=== PATIENT | male | born 1970 | race Caucasian/White ===

== ENCOUNTER 2018-07-25 01:55 | Inpatient (IN) ==
[2018-07-25] MEDS ORDERED: Sod Chloride 0.9% Inj 1,000 ML IV.CONT SCH (02:45)
--- NOTE | 2018-07-25 02:47 | ED ---
HPI General Chief Complaint: Abdominal Pain Stated Complaint: Time Seen by Provider: 07/25/18 02:13 Source: patient Mode of arrival: ambulatory Limitations: no limitations History of Present Illness HPI narrative: The patient is a 48-year-old male who presents to the emergency department for right upper quadrant abdominal pain and yellowing of the skin. The patient states he was at the [facility] until yesterday evening for similar symptoms, however, the patient signed out AGAINST MEDICAL ADVICE after he was involved in an argument with a nurse. The patient denies any history of alcohol use, hepatitis, IV drug use, or previous history of jaundice. The patient does state he recently had constipation, had an episode of nausea and vomiting, thought he was vomiting stool. The patient states he had multiple studies performed at [facility], however, does not know the results. The patient states he was told it was his liver as well as his gallbladder. The patient denies any fever, chills, or sweats. MD complaint: abdominal pain Onset (ago): day(s) Pain Consistency: constant Location: RUQ Severity: moderate Severity scale (1-10): 6 Quality: stabbing Radiation: R flank Migration to: R flank Relieving factors: nothing Exacerbating factors: nothing Associated symptoms: nausea, vomiting and constipation Related Data Home Medications Medication Instructions Recorded Confirmed No Known Home Medications 07/25/18 07/25/18 Allergies Allergy/AdvReac Type Severity Reaction Status Date / Time acetaminophen Allergy Unknown Nausea/Vomi Verified 07/25/18 01:57 ting aspirin Allergy Unknown Nausea/Vomi Verified 07/25/18 01:57 ting propoxyphene Allergy Unknown Nausea/Vomi Verified 07/25/18 01:57 ting Review of Systems ROS: all other systems reviewed are negative [facility] Medical History Medical History Hypoglycemia (Acute) Kidney stones (Acute) Surgical History Surgical History History of hernia surgery (Acute) Social History Social History Substance History: No History of Abuse Second Hand Smoke Exposure: Yes Smoking Status: Current every day smoker Tobacco Type: Cigarettes How Often Do You Have a Drink Containing Alcohol: 4 or more times a week Recent Travel in [facility] within the Last 8 Weeks: No Recent Out of Country Travel within the Last 8 Weeks: No Immunization History Tetanus Immunization: <5 Years Hx Influenza Vaccine This Season: Yes Exam Narrative Exam Narrative: GENERAL: Awake, alert, pleasant 48-year-old male who appears his stated age and is in no respiratory distress. SKIN: Jaundice. HEAD: Atraumatic. Normocephalic. EYES: Pupils equal and round. Pupils are 2 mm bilateral and reactive. Bilateral icterus. ENT: No nasal bleeding or discharge. Mucous membranes pink and moist. Upper dentures in place. NECK: Trachea midline. No JVD. CARDIOVASCULAR: Regular rate and rhythm. No murmur appreciated. RESPIRATORY: No accessory muscle use. Clear to auscultation. Breath sounds equal bilaterally. GASTROINTESTINAL: Abdomen soft, right upper quadrant abdominal tenderness. No guarding or rigidity. MUSCULOSKELETAL: No obvious deformities. No clubbing. No cyanosis. No edema. NEUROLOGICAL: Awake and alert. No obvious cranial nerve deficits. Motor grossly within normal limits. Normal speech. PSYCHIATRIC: Odd affect. Course Initial Documented Vital Signs Temperature 98.0 F 07/25/18 01:58 Pulse Rate 105 H 07/25/18 01:58 Respiratory Rate 20 07/25/18 01:58 Blood Pressure 94/55 L 07/25/18 01:58 Pulse Oximetry 98 07/25/18 01:58 Last Documented Vital Signs Temperature 98.0 F 07/25/18 01:58 Pulse Rate 87 07/25/18 02:06 Respiratory Rate 20 07/25/18 02:06 Blood Pressure 100/55 L 07/25/18 02:06 Pulse Oximetry 98 07/25/18 02:06 Medical Decision Making MDM Narrative Medical decision making narrative: IV was established, labs are drawn and sent, and the patient was placed on cardiac telemetry monitoring and continuous pulse oximetry monitoring. An attempt was made to obtain the patient's records from [facility]. CT of the abdomen and pelvis was performed to evaluate for possible cholelithiasis/cholangitis/choledocholithiasis. Patient' s bilirubin is significantly elevated as well as LFTs. CT reveals hepatocellular disease, no obvious source of obstructive jaundice. I reviewed the paperwork from [facility], the patient tested positive for hepatitis B, unsure if this is acute versus chronic. Most likely this is acute hepatitis B infection, patient may benefit from antiviral therapy and gastroenterology evaluation. Therefore, the patient will be admitted. I discussed the patient with Dr. Francisco who agrees with admission. Medical Screen Exam Complete: Yes Emergency Medical Condition: Yes Differential Diagnosis Differential Diagnosis: Differential diagnosis includes choledocholithiasis, cholelithiasis, hepatitis, pancreatitis, cholangitis, obstructive jaundice. Lab Data Lab results reviewed: Yes I reviewed the patient's lab results. Lab results narrative: LFTs and bilirubin are elevated. Result diagrams: 07/25/18 02:50 07/25/18 02:50 Lab Results 07/25/18 07/25/18 07/25/18 Range/Units 02:50 02:50 02:50 WBC 7.5 (4.0-11.0) th/mm3 RBC 4.34 L (4.50-5.90) mil/mm3 Hgb 12.8 L (13.0-17.0) gm/dL Hct 37.8 L (39.0-51.0) % MCV 87.2 (80.0-100.0) fL MCH 29.5 (27.0-34.0) pg MCHC 33.8 (32.0-36.0) % RDW 16.4 (11.6-17.2) % Plt Count 237 (150-450) th/mm3 MPV 9.8 (7.0-11.0) fL Neut % (Auto) 72.2 H (16.0-70.0) % Lymph % (Auto) 15.6 (9.0-44.0) % Starke % (Auto) 10.3 H (0.0-8.0) % Eos % (Auto) 1.3 (0.0-4.0) % Baso % (Auto) 0.6 (0.0-2.0) % Neut # (Auto) 5.4 (1.8-7.7) th/mm3 Lymph # (Auto) 1.2 (1.0-4.8) th/mm3 Starke # (Auto) 0.8 (0.0-0.9) th/mm3 Eos # (Auto) 0.1 (0.0-0.4) th/mm3 Baso # (Auto) 0.0 (0.0-0.2) th/mm3 WBC Differential . Differential Comment Auto diff final PT 12.8 H (9.8-11.6) sec INR 1.3 Ratio APTT 27.5 (24.3-30.1) sec Sodium 137 (136-145) meq/L Potassium 3.9 (3.5-5.1) meq/L Chloride 102 (98-107) meq/L Carbon Dioxide 25.0 (21.0-32.0) meq/L Anion Gap 10 (5-15) meq/L BUN 9 (7-18) mg/dL Creatinine 1.25 (0.60-1.30) mg/dL Estimated GFR 62 L (>89) mL/min Random Glucose 221 H (74-106) mg/dL Lactic Acid (0.4-2.0) mmol/L Calcium 7.5 L (8.5-10.1) mg/dL Total Bilirubin 14.8 H (0.2-1.0) mg/dL AST 817 H (15-37) U/L ALT 1014 H (12-78) U/L Alkaline Phosphatase 244 H (45-117) U/L Total Protein 5.6 L (6.4-8.2) g/dL Albumin 2.2 L (3.4-5.0) g/dL Lipase 75 (73-393) U/L 07/25/18 Range/Units 02:50 WBC (4.0-11.0) th/mm3 RBC (4.50-5.90) mil/mm3 Hgb (13.0-17.0) gm/dL Hct (39.0-51.0) % MCV (80.0-100.0) fL MCH (27.0-34.0) pg MCHC (32.0-36.0) % RDW (11.6-17.2) % Plt Count (150-450) th/mm3 MPV (7.0-11.0) fL Neut % (Auto) (16.0-70.0) % Lymph % (Auto) (9.0-44.0) % Starke % (Auto) (0.0-8.0) % Eos % (Auto) (0.0-4.0) % Baso % (Auto) (0.0-2.0) % Neut # (Auto) (1.8-7.7) th/mm3 Lymph # (Auto) (1.0-4.8) th/mm3 Starke # (Auto) (0.0-0.9) th/mm3 Eos # (Auto) (0.0-0.4) th/mm3 Baso # (Auto) (0.0-0.2) th/mm3 WBC Differential Differential Comment PT (9.8-11.6) sec INR Ratio APTT (24.3-30.1) sec Sodium (136-145) meq/L Potassium (3.5-5.1) meq/L Chloride (98-107) meq/L Carbon Dioxide (21.0-32.0) meq/L Anion Gap (5-15) meq/L BUN (7-18) mg/dL Creatinine (0.60-1.30) mg/dL Estimated GFR (>89) mL/min Random Glucose (74-106) mg/dL Lactic Acid 1.8 (0.4-2.0) mmol/L Calcium (8.5-10.1) mg/dL Total Bilirubin (0.2-1.0) mg/dL AST (15-37) U/L ALT (12-78) U/L Alkaline Phosphatase (45-117) U/L Total Protein (6.4-8.2) g/dL Albumin (3.4-5.0) g/dL Lipase (73-393) U/L Imaging Data Radiologist's impression: Abdomen/Pelvis CT 07/25/18 02:43 CONCLUSION: 1. Hepatosplenomegaly. 2. Small mildly enlarged lymph nodes within the jack hepatis without bulky adenopathy elsewhere. The exact etiology is uncertain. I cannot completely exclude a myeloproliferative disorder. 3. Poor evaluation of the gallbladder which is largely decompressed. There is suspected linear high attenuation material within the lumen which could relate to infolding of the gallbladder wall or could relate to sludge. At some point an outpatient follow-up ultrasound of the gallbladder is suggested to further assess. 4. Small volume ascites. Discharge Plan Discharge Disposition Patient Disposition: 30 Still Patient Discharge Condition Condition: Stable Discharge Details Diagnosis: Hepatitis, Hyperbilirubinemia, Nausea & vomiting Physicians Team ED Provider: Angel Shah Primary Care Provider: Primary Care Isabella Juárez Rxs /Orders / Referrals /Forms Prescriptions: No Action No Known Home Medications RF: 0 Status ED Status: Admitted Patient
[2018-07-25 03:08] LABS: Activated Partial Thrombo Time 27.5 sec (24.3-30.1); INR 1.3 Ratio; Prothrombin Time 12.8 sec (9.8-11.6)
[2018-07-25 03:15] LABS: Albumin 2.2 g/dL (3.4-5.0); Anion Gap 10 meq/L (5-15); Aspartate Aminotransferase 817 U/L (15-37); Baso % (Auto) 0.6 % (0.0-2.0); Blood Urea Nitrogen 9 mg/dL (7-18); Calcium 7.5 mg/dL (8.5-10.1); Chloride 102 meq/L (98-107); Eos # (Auto) 0.1 th/mm3 (0.0-0.4); Eos % (Auto) 1.3 % (0.0-4.0); Glomerular Filtration Rate 62 mL/min (>89); Glucose,Random 221 mg/dL (74-106); Hematocrit 37.8 % (39.0-51.0); Hemoglobin 12.8 gm/dL (13.0-17.0); Lipase 75 U/L (73-393); Lymph # (Auto) 1.2 th/mm3 (1.0-4.8); Lymph % (Auto) 15.6 % (9.0-44.0); Mean Corpuscular HGB Conc 33.8 % (32.0-36.0); Mean Corpuscular Hemoglobin 29.5 pg (27.0-34.0); Mean Corpuscular Volume 87.2 fL (80.0-100.0); Mean Platelet Volume 9.8 fL (7.0-11.0); Mono # (Auto) 0.8 th/mm3 (0.0-0.9); Mono % (Auto) 10.3 % (0.0-8.0); Neut # (Auto) 5.4 th/mm3 (1.8-7.7); Neut % (Auto) 72.2 % (16.0-70.0); Platelet Count 237 th/mm3 (150-450); Potassium 3.9 meq/L (3.5-5.1); Red Blood Count 4.34 mil/mm3 (4.50-5.90); Red Cell Distribution Width 16.4 % (11.6-17.2); Sodium 137 meq/L (136-145); White Blood Count 7.5 th/mm3 (4.0-11.0)
[2018-07-25 03:24] LABS: Alanine Aminotransferase 1014 U/L (12-78); Alkaline Phosphatase 244 U/L (45-117); Total Protein 5.6 g/dL (6.4-8.2)
[2018-07-25] MEDS ORDERED: Ketorolac Inj 30 MG/ML (IVP) Vial IV.PUSH ONE (03:50)
--- NOTE | 2018-07-25 04:12 | CT ---
EXAM DATE: 07/25/2018 3:44 AM EDT AGE/SEX: 48 years / Male INDICATIONS: Right upper quadrant with jaundice. CLINICAL DATA: This is the patient's initial encounter. Patient reports that signs and symptoms have been present for 1 day and indicates a pain score of 9/10. MEDICAL/SURGICAL HISTORY: Renal calculi. None. ORAL CONTRAST: No oral contrast ingested. RADIATION DOSE: 13.57 CTDI (mGy) COMPARISON: No prior exams available for comparison. TECHNIQUE: Multiple contiguous axial images were obtained through the abdomen and pelvis following b olus infusion of 90 ml Omnipaque 350 (iohexol) nonionic water-soluble contrast as a single exam dos e. No oral contrast ingested. Using automated exposure control and adjustment of the mA and/or kV ac cording to patient size, radiation dose was kept as low as reasonably achievable to obtain optimal di agnostic quality images. DICOM format image data is available electronically for review and comparis on. FINDINGS: Lower Lungs: The visualized lower lungs are clear. Liver: Hepatomegaly. No mass or ductal dilatation. Portal veins patent. The gallbladder is decompress ed and poorly evaluated. There is linear high attenuation suspected within the lumen. No gallbladder wall thickening or surrounding fluid. Small jack hepatis lymph nodes are noted. The largest measures 2.6 x 0.8 cm.. Spleen: Splenomegaly. No mass.. Pancreas: Unremarkable without mass or calcification. Kidneys: Normal in size and shape. No evidence of mass or hydronephrosis. Adrenal Glands: Unremarkable. Aorta: The aorta and proximal iliac vessels are grossly unremarkable without aneurysmal dilation. Bowel/Mesentery: Small volume ascites within the pelvis. The bowel loops are grossly unremarkable. T he cecum and sigmoid colon have a normal configuration. Abdominal Wall: Prior ventral hernia repair utilizing mesh.. Retroperitoneum: No evidence of adenopathy in the retrocrural, para-aortic, or deep pelvic regions. Bladder: Contours are smooth. Reproductive Organs: No abnormal masses or calcifications seen. Inguinal: The inguinal region is unremarkable without evidence of adenopathy. Bony Structures: Unremarkable. CONCLUSION: 1. Hepatosplenomegaly. 2. Small mildly enlarged lymph nodes within the jack hepatis without bulky adenopathy elsewhere. Th e exact etiology is uncertain. I cannot completely exclude a myeloproliferative disorder. 3. Poor evaluation of the gallbladder which is largely decompressed. There is suspected linear high attenuation material within the lumen which could relate to infolding of the gallbladder wall or coul d relate to sludge. At some point an outpatient follow-up ultrasound of the gallbladder is suggested to further assess. 4. Small volume ascites. Electronically signed by: Iván Rowe MD 07/25/2018 4:11 AM EDT
[2018-07-25] MEDS ORDERED: Bisacodyl 10 MG Supp RECTAL PRN (05:07)
--- NOTE | 2018-07-25 05:20 | P.HPIM ---
History of Present Illness Primary Care Physician: No Primary Care Physician History of Present Illness: This is a 48-year-old male with no reported PMH who presented to ER with complaints of RUQ pain and jaundice. Pt was apparently admitted to [facility] on 07/23/18 for similar complaints, had been undergoing extensive work up for elevated LFTs and hyperbilirubinemia, however pt LEFT AMA after getting into an argument with a nurse. Per report, pt had been found using Cocaine in the bathroom and signed out AMA. He denies IVDU. Records from obtained and reviewed, pt underwent Hepatobiliary Scan 07/23/18 w/ findings suggestive of either chronic cholecystitis or hepatocellular disease, HIDA w/ no evidence of obstruction, found to be Hepatitis B positive and clinical picture suggestive of acute Hepatitis B infection per notes. Pt denies previous h/o Hepatitis. Reports severe RUQ pain, 10/10, associated w/ nausea/vomiting. No fever or chills, but notes decreased urinary output w/ dark-colored urine. - Diagnosis (1) Hepatitis (2) Hyperbilirubinemia (3) Cocaine abuse Inpatient Certification: I certify that the inpatient services were ordered in accordance with Medicare regulations governing the order. This includes certification that hospital inpatient services are reasonable and necessary and in the case of services not specified as inpatient-only under 42 CFR 419.22(n), that they are appropriately provided as inpatient services in accordance to with the 2-midnight benchmark under 43 CFR 412.3(e) Estimated Total Length of Stay (Days): 2 Plans for Post Hospital Care: Not yet determined Review of Systems PAST FAMILY HISTORY: Reviewed. No h/o DM or CAD All other systems reviewed negative except as stated in HPI [facility] - History History Provided By: Patient - Medical History Medical History: Medical History (Last Updated 07/25/18 @ 02:02 by Dorothy Perkins) Hypoglycemia Kidney stones - Surgical History Surgical History: Surgical History (Last Updated 07/25/18 @ 02:02 by Dorothy Perkins) History of hernia surgery - Tobacco History Second Hand Smoke Exposure: Yes Tobacco Use In Past 30 Days: Yes Smoking Status: Current every day smoker Tobacco Type: Cigarettes - Alcohol History How Often Do You Have a Drink Containing Alcohol: 4 or more times a week - Substance Use History Substance History: No History of Abuse - Travel History Recent Travel in the [facility] Within the Last 8 Weeks: No Recent Travel Out of the Country Within the Last 8 Weeks: No - Immunization History Tetanus Immunization: <5 Years Hx Influenza Vaccine This Season: Yes Medications and Allergies Active Medications: Active Medications Al Hydroxide/Mg Hydroxide (Milk Of Magnesia Liq) 30 ml PO Q12H PRN PRN Reason: Mild Constipation Bisacodyl (Dulcolax Supp) 10 mg RECTAL DAILY PRN PRN Reason: SEVERE CONSITIPATION Sodium Chloride (Ns Inj) 1,000 mls @ 125 mls/hr IV.CONT .Q8H MARY Stop: 07/25/18 10:44 Last Admin: 07/25/18 02:56 Dose: 125 mls/hr Lactulose (Lactulose Liq) 30 ml PO DAILY PRN PRN Reason: SEVERE CONSITIPATION Morphine Sulfate (Morphine Inj) 2 mg IV.PUSH Q4H PRN PRN Reason: PAIN 6-10 Ondansetron HCl (Zofran Inj) 4 mg IV.PUSH Q6H PRN PRN Reason: NAUSEA OR VOMITING Senna/Docusate Sodium (Mariya-Colace) 1 tab PO BID [facility] Sennosides (Senokot) 17.2 mg PO Q12H PRN PRN Reason: Moderate Constipation Sodium Chloride (Ns Flush) 2 ml IV.FLUSH PRN PRN PRN Reason: FLUSH AFTER USING IV ACCESS Allergies Allergy/AdvReac Type Severity Reaction Status Date / Time acetaminophen Allergy Unknown Nausea/Vomi Verified 07/25/18 01:57 ting aspirin Allergy Unknown Nausea/Vomi Verified 07/25/18 01:57 ting propoxyphene Allergy Unknown Nausea/Vomi Verified 07/25/18 01:57 ting Home Medications Medication Instructions Recorded Confirmed Type No Known Home Medications 07/25/18 07/25/18 History Exam Vital signs: Vital Signs 07/25/18 01:58 07/25/18 02:06 Temperature 98.0 F Pulse Rate 105 H 87 Respiratory Rate 20 20 Blood Pressure 94/55 L 100/55 L Pulse Oximetry 98 98 Intake & Output 07/24/18 07/24/18 07/25/18 06:59 18:59 06:59 Weight 72.575 kg Narrative: PE: GENERAL: Middle-aged white male in no acute distress, appears anxious. SKIN: Focused skin assessment warm and dry. +jaundice HEENT: PERRLA, EOMI. + scleral icterus or conjunctival pallor. No lid lag or facial droop. CARDIOVASCULAR: Regular rate and rhythm. No obvious murmurs to auscultation. No chest tenderness to palpation. RESPIRATORY: No obvious rhonchi or wheezing. Clear to auscultation. Breath sounds equal bilaterally. GASTROINTESTINAL: Abdomen soft, RUQ tenderness to palpation, nondistended. BS normal. MUSCULOSKELETAL: Extremities without clubbing, cyanosis, or edema. No obvious deformities. NEUROLOGICAL: Awake, alert and oriented x4. No focal neurologic deficits. Moving both upper and lower extremities spontaneously. PSYCHIATRIC: Appropriate mood and affect. Insight and judgment normal. Results - Labs CBC & Chem 7: 07/25/18 02:50 07/25/18 02:50 Labs: Short CBC 07/25/18 Range/Units 02:50 WBC 7.5 (4.0-11.0) th/mm3 Hgb 12.8 L (13.0-17.0) gm/dL Hct 37.8 L (39.0-51.0) % Plt Count 237 (150-450) th/mm3 BMP 07/25/18 02:50 Sodium 137 Potassium 3.9 Chloride 102 Carbon Dioxide 25.0 BUN 9 Creatinine 1.25 Calcium 7.5 L Liver Function 07/25/18 Range/Units 02:50 Total Bilirubin 14.8 H (0.2-1.0) mg/dL AST 817 H (15-37) U/L ALT 1014 H (12-78) U/L Alkaline Phosphatase 244 H (45-117) U/L Albumin 2.2 L (3.4-5.0) g/dL - Imaging Impressions Abdomen/Pelvis CT 07/25/18 02:43 CONCLUSION: 1. Hepatosplenomegaly. 2. Small mildly enlarged lymph nodes within the jack hepatis without bulky adenopathy elsewhere. The exact etiology is uncertain. I cannot completely exclude a myeloproliferative disorder. 3. Poor evaluation of the gallbladder which is largely decompressed. There is suspected linear high attenuation material within the lumen which could relate to infolding of the gallbladder wall or could relate to sludge. At some point an outpatient follow-up ultrasound of the gallbladder is suggested to further assess. 4. Small volume ascites. Caprini VTE Risk Assessment Caprini VTE Risk Assessment: No/Low Risk (score <= 1) Caprini Risk Assessment Model: Point Value = 1 Point Value = 2 Point Value = 3 Point Value = 5 Age 41-60 Minor surgery BMI > 25 kg/m2 Swollen legs Varicose veins or History of unexplained or recurrent spontaneous Oral contraceptives or hormone replacement Sepsis (< 1 month) Serious lung disease, including pneumonia (< 1 month) Abnormal pulmonary function Acute myocardial infarction Congestive heart failure (< 1 month) History of inflammatory bowel disease Medical patient at bed rest Age 61-74 Arthroscopic surgery Major open surgery (> 45 min) Laparoscopic surgery (> 45 min) Malignancy Confined to bed (> 72 hours) Immobilizing plaster cast Central venous access Age >= 75 History of VTE Family history of VTE Factor V Leiden Prothrombin [id number] Lupus anticoagulant Anticardiolipin antibodies Elevated serum homocysteine Heparin-induced thrombocytopenia Other congenital or acquired thrombophilia Stroke (< 1 month) Elective arthroplasty Hip, pelvis, or leg fracture Acute spinal cord injury (< 1 month) Prophylaxis Regimen: Total Risk Factor Score Risk Level Prophylaxis Regimen 0-1 Low Early ambulation 2 Moderate Order ONE of the following: *Sequential Compression Device (SCD) *Heparin 5000 units SQ BID 3-4 Higher Order ONE of the following medications: *Heparin 5000 units SQ TID *Enoxaparin/Lovenox 40 mg SQ daily (WT < 150 kg, CrCl > 30 mL/min) *Enoxaparin/Lovenox 30 mg SQ daily (WT < 150 kg, CrCl > 10-29 mL/min) *Enoxaparin/Lovenox 30 mg SQ BID (WT < 150 kg, CrCl > 30 mL/min) AND/OR *Sequential Compression Device (SCD) 5 or more Highest Order ONE of the following medications: *Heparin 5000 units SQ TID (Preferred with Epidurals) *Enoxaparin/Lovenox 40 mg SQ daily (WT < 150 kg, CrCl > 30 mL/min) *Enoxaparin/Lovenox 30 mg SQ daily (WT < 150 kg, CrCl > 10-29 mL/min) *Enoxaparin/Lovenox 30 mg SQ BID (WT < 150 kg, CrCl > 30 mL/min) AND *Sequential Compression Device (SCD) Assessment and Plan - Assessment (1) Hepatitis Code(s): K75.9 - Inflammatory liver disease, unspecified Status: Acute (2) Hyperbilirubinemia Code(s): E80.6 - Other disorders of bilirubin metabolism Status: Acute (3) Cocaine abuse Code(s): F14.10 - Cocaine abuse, uncomplicated Status: Acute - Plan A/P: 1. Hepatitis: acutely elevated LFTs, increased in comparison to labs from on 07/23/18, thought to be secondary to acute Hepatitis B infection per review of records. AST 817, ALT 1014, ALP 244, Total Bili 14.8. CT Abd/Pelvis w/ hepatosplenomegaly, decompressed gallbladder. Hepatobiliary Scan from on w/ ?chronic cholecystitis vs hepatocellular disease, HIDA negative for obstruction. Will Consult GI for further evaluation. NO acetaminophen. Repeat labs in am. 2. Hyperbilirubinemia: Total Bili 14.8, previously 12 from 07/23/18, no evidence of obstruction, likely related to acute viral hepatitis. Repeat labs in am. 3. Cocaine Abuse: Per report from , pt found using cocaine in the bathroom of his room prior to leaving AMA, will check U/a and Urine Drug Screen. Denies IVDU. 4. DVT Prophylaxis: SCD/Teds 5. Social work for d/c planning as needed 6. Case discussed w/ ER physician at length, labs/records/imaging reviewed by me
[2018-07-25] MEDS: Senna/Docusate Sodium 8.6/50 MG Tablet PO SCH ×2 (08:54→23:26)
--- NOTE | 2018-07-25 09:02 | P.PNIM ---
Subjective Interval history: f/u; jaundice in no acute distress and looks fairly comfortable. has mild abdominal pain. no fever. d/w the RN and no acute issues over night. Physical Exam Vital signs: Vital Signs 07/25/18 01:58 07/25/18 02:06 07/25/18 05:58 Temperature 98.0 F Pulse Rate 105 H 87 Respiratory Rate 20 20 20 Blood Pressure 94/55 L 100/55 L Pulse Oximetry 98 98 Intake & Output 07/24/18 07/25/18 07/25/18 18:59 06:59 18:59 Weight 72.575 kg - Constitutional no acute distress - Routine Respiratory Exam Present: CTA bilaterally - Routine Cardiovascular Exam Present: RRR - Routine Abdominal Exam Present: soft - Routine Extremities Exam Comments: no pedal edema. - Routine Neurological Exam Present: alert, oriented X3 Results - Labs CBC & Chem 7: 07/25/18 02:50 07/25/18 02:50 Laboratory Results - last 24 hr 07/25/18 07/25/18 07/25/18 02:50 02:50 02:50 WBC 7.5 RBC 4.34 L Hgb 12.8 L Hct 37.8 L MCV 87.2 MCH 29.5 MCHC 33.8 RDW 16.4 Plt Count 237 MPV 9.8 Neut % (Auto) 72.2 H Lymph % (Auto) 15.6 [place] % (Auto) 10.3 H Eos % (Auto) 1.3 Baso % (Auto) 0.6 Neut # (Auto) 5.4 Lymph # (Auto) 1.2 [place] # (Auto) 0.8 Eos # (Auto) 0.1 Baso # (Auto) 0.0 WBC Differential . Differential Comment Auto diff final PT 12.8 H INR 1.3 APTT 27.5 Sodium 137 Potassium 3.9 Chloride 102 Carbon Dioxide 25.0 Anion Gap 10 BUN 9 Creatinine 1.25 Estimated GFR 62 L Random Glucose 221 H Lactic Acid Calcium 7.5 L Total Bilirubin 14.8 H AST 817 H ALT 1014 H Alkaline Phosphatase 244 H Total Protein 5.6 L Albumin 2.2 L Lipase 75 07/25/18 02:50 WBC RBC Hgb Hct MCV MCH MCHC RDW Plt Count MPV Neut % (Auto) Lymph % (Auto) [place] % (Auto) Eos % (Auto) Baso % (Auto) Neut # (Auto) Lymph # (Auto) [place] # (Auto) Eos # (Auto) Baso # (Auto) WBC Differential Differential Comment PT INR APTT Sodium Potassium Chloride Carbon Dioxide Anion Gap BUN Creatinine Estimated GFR Random Glucose Lactic Acid 1.8 Calcium Total Bilirubin AST ALT Alkaline Phosphatase Total Protein Albumin Lipase - Imaging Impressions Abdomen/Pelvis CT 07/25/18 02:43 CONCLUSION: 1. Hepatosplenomegaly. 2. Small mildly enlarged lymph nodes within the jack hepatis without bulky adenopathy elsewhere. The exact etiology is uncertain. I cannot completely exclude a myeloproliferative disorder. 3. Poor evaluation of the gallbladder which is largely decompressed. There is suspected linear high attenuation material within the lumen which could relate to infolding of the gallbladder wall or could relate to sludge. At some point an outpatient follow-up ultrasound of the gallbladder is suggested to further assess. 4. Small volume ascites. Assessment and Plan - Assessment (1) Hepatitis Code(s): K75.9 - Inflammatory liver disease, unspecified Status: Acute (2) Hyperbilirubinemia Code(s): E80.6 - Other disorders of bilirubin metabolism Status: Acute (3) Cocaine abuse Code(s): F14.10 - Cocaine abuse, uncomplicated Status: Acute - Plan 1. Hepatitis/jaundice: acutely elevated LFTs, increased in comparison to labs from on 07/23/18 AST 817, ALT 1014, ALP 244, Total Bili 14.8. CT Abd/Pelvis w / hepatosplenomegaly, decompressed gallbladder. Hepatobiliary Scan from on w/ ?chronic cholecystitis vs hepatocellular disease, HIDA negative for obstruction. GI consulted- NO acetaminophen. Repeat labs in am. 2. Hyperbilirubinemia: Total Bili 14.8, previously 12 from 07/23/18, no evidence of obstruction, likely related to acute viral hepatitis. Repeat labs in am. 3. Cocaine Abuse: Per report from , pt found using cocaine in the bathroom of his room prior to leaving AMA, will check U/a and Urine Drug Screen. Denies IVDU. 4. DVT Prophylaxis: SCD/Teds
[2018-07-25 11:57] LABS: Bilirubin,Urine Moderate (Negative); Clarity,Urine Clear (Clear); Color,Urine Amber (Yellw/Straw); Glucose,Urine (UA) Negative (Negative); Ictotest,Urine Positive (Negative); Leukocyte Esterase,Urine Negative (Negative); Mucus,Urine Few /lpf (Occasional); Nitrite,Urine Negative (Negative); Squamous Epithelial Cell,Urine 1 /hpf (0-5); Urobilinogen,Urine 4 or Greater mg/dL (Less than 2)
[2018-07-25 11:59] LABS: Amphetamine Screen,Urine Neg (Neg); Barbiturate Screen,Urine Neg (Neg); Cannabinoid Screen,Urine Pos (Neg); Cocaine Screen,Urine Pos (Neg)
[2018-07-25 12:05] LABS: Opiate Screen,Urine Neg (Neg)
[2018-07-25] MEDS: Sod Chloride 0.9% Inj 1,000 ML IV.CONT SCH ×2 (12:21→23:26)
[2018-07-25] MEDS: Morphine Sulfate Inj 2 MG/ML Vial IV.PUSH PRN ×2 (13:37→20:34)
--- NOTE | 2018-07-25 14:46 | MB ---
cc: Cornelia Diego MD DATE: 07/25/2018 TYPE OF CONSULTATION: GI consult. REASON FOR CONSULTATION: Abdominal pain and jaundice. HISTORY OF PRESENT ILLNESS: This is a 48-year-old male patient with no significant past medical history who presented to the hospital complaining of right upper quadrant abdominal pain and a yellowish discoloration of his sclera along with tea-colored urine. The patient had an episode of chills and rigors last night and he sought medical attention at our hospital. The patient was seen in the emergency room. He had a workup that showed a significant increase in liver enzymes with a total bilirubin of 14.8. AST and ALT elevated: ALT 1014, AST 817, alkaline phosphatase 244. His albumin is 2.2. Otherwise, his labs were essentially normal. His hemoglobin 12.8, hematocrit 37.8, and coags show a slight elevation of INR of 1.3. The patient was admitted for further evaluation. At the current time, the patient appeared to be comfortable with minimal discomfort as he described no other associated symptoms. The patient denies any history of traveling abroad, family history of liver disease, denies contact with a patient with jaundice or liver disease. The patient does not drink alcohol at all, and denies IV drug abuse, although he smokes marijuana periodically. REVIEW OF SYSTEMS: All 14 point review of systems negative other than the ones I mentioned in the history of present illness. FAMILY HISTORY: Unremarkable. 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 Smokes cigarettes and marijuana. Denies IV drug abuse. PAST MEDICAL HISTORY: Included episodes of hypoglycemia as described by the patient, kidney stones. SURGICAL HISTORY: Positive for hernia surgery several years ago. PHYSICAL EXAMINATION: GENERAL: The patient appeared to be comfortable, not in pain. Deeply jaundiced. Hemodynamically stable. HEAD AND NECK: Normocephalic, atraumatic. Pupils are equal and reactive to light. Neck supple. No lymphadenopathy. No thyromegaly. CHEST: Clear to auscultation bilaterally. No crackles or wheezes. HEART: Regular rate and rhythm. No murmurs. ABDOMEN: Tenderness all over, but mostly in the right upper quadrant area. His liver edge is palpable and spleen is enlarged. No other masses. No ascites. EXTREMITIES: Normal pulses. No edema. NEUROLOGIC: Nonfocal. SKIN: Jaundiced and few tattoos, but otherwise unremarkable. LABORATORY DATA: As mentioned in the history of present illness. He had also a CT scan done that showed hepatosplenomegaly and small mildly enlarged lymph nodes within the jack hepatis, and poor visualization of the gallbladder, very small volume of ascites. ASSESSMENT AND PLAN: A 48-year-old male patient with no significant past medical history who presented with picture of hepatitis in the form of jaundice, abdominal pain, fever, hepatosplenomegaly and lymphadenopathy. No other risk factor as per the patient for viral hepatitis, no family history. No history of traveling abroad or IV drug abuse. 1. Given the above history and the assessment, plan to check for viral serology including hepatitis A, B, C, and Monospot and EBV. 2. We will need to check a right upper quadrant abdominal ultrasound for better visualization of the gallbladder, since the CT scan was inconclusive. 3. Check for autoimmune markers. 4. Daily check on liver function tests. 5. Supportive care with IV hydration. 6. Mild anemia, despite being hemoconcentrated. We will follow H and H meanwhile. Further recommendations to follow. MD FLAKO Puri/zeenat , 10:41 AM , 10:51 AM
[2018-07-26] MEDS: Sod Chloride 0.9% Inj 1,000 ML IV.CONT SCH ×3 (01:17→18:08)
[2018-07-26] MEDS: Morphine Sulfate Inj 2 MG/ML Vial IV.PUSH PRN ×6 (01:21→21:47)
[2018-07-26 04:47] LABS: Baso # (Auto) 0.1 th/mm3 (0.0-0.2); Baso % (Auto) 0.9 % (0.0-2.0); Eos # (Auto) 0.2 th/mm3 (0.0-0.4); Eos % (Auto) 3.4 % (0.0-4.0); Hematocrit 35.2 % (39.0-51.0); Hemoglobin 12.1 gm/dL (13.0-17.0); Lymph # (Auto) 1.7 th/mm3 (1.0-4.8); Lymph % (Auto) 27.1 % (9.0-44.0); Mean Corpuscular HGB Conc 34.5 % (32.0-36.0); Mean Corpuscular Hemoglobin 29.8 pg (27.0-34.0); Mean Corpuscular Volume 86.3 fL (80.0-100.0); Mono # (Auto) 0.8 th/mm3 (0.0-0.9); Mono % (Auto) 12.8 % (0.0-8.0); Neut # (Auto) 3.5 th/mm3 (1.8-7.7); Neut % (Auto) 55.8 % (16.0-70.0); Platelet Count 225 th/mm3 (150-450); Red Blood Count 4.08 mil/mm3 (4.50-5.90); White Blood Count 6.3 th/mm3 (4.0-11.0)
[2018-07-26 05:22] LABS: Alanine Aminotransferase 994 U/L (12-78); Albumin 2.1 g/dL (3.4-5.0); Alkaline Phosphatase 227 U/L (45-117); Anion Gap 8 meq/L (5-15); Aspartate Aminotransferase 868 U/L (15-37); Blood Urea Nitrogen 6 mg/dL (7-18); Calcium 7.4 mg/dL (8.5-10.1); Carbon Dioxide 22.8 meq/L (21.0-32.0); Chloride 110 meq/L (98-107); Glomerular Filtration Rate Greater Than 89 mL/min (>89); Glucose,Random 91 mg/dL (74-106); Sodium 141 meq/L (136-145); Total Protein 5.3 g/dL (6.4-8.2)
--- NOTE | 2018-07-26 09:40 | P.PNIM ---
Subjective Interval history: f/u; jaundice in no acute distress. although looks comfortable, says that has some abdominal pain. d/w the RN. Physical Exam Vital signs: Vital Signs 07/25/18 12:00 07/25/18 13:07 07/25/18 13:35 Temperature 97.4 F L Pulse Rate 51 L 46 L 63 Respiratory Rate 20 Blood Pressure 86/50 L 88/53 L 108/60 Pulse Oximetry 97 07/25/18 13:36 07/25/18 14:25 07/25/18 16:00 Temperature 97.8 F Pulse Rate 63 76 Respiratory Rate 16 20 Blood Pressure 108/60 116/56 L Pulse Oximetry 98 07/25/18 20:00 07/26/18 00:00 07/26/18 04:00 Temperature 98.5 F 99.2 F 98.7 F Pulse Rate 77 78 76 Respiratory Rate 18 18 18 Blood Pressure 109/58 L 127/61 104/59 L Pulse Oximetry 99 98 99 07/26/18 08:00 Temperature 97.8 F Pulse Rate 65 Respiratory Rate 16 Blood Pressure 126/83 Pulse Oximetry 96 Intake & Output 07/25/18 07/26/18 07/26/18 18:59 06:59 18:59 Intake Total 1999 Balance 1999 Weight 73.3 kg Intake: IV 1999 NS Inj 1,000 ML @ 100 mls/hr IV 1999 .CONT .Q10H [facility] Rx#:[id number] Other: # Voids 2 Date of Last Bowel Movement 07/22/18 - Constitutional no acute distress - Routine Respiratory Exam Present: CTA bilaterally - Routine Cardiovascular Exam Present: RRR - Routine Abdominal Exam Present: soft - Routine Extremities Exam Comments: no pedal edema. - Routine Neurological Exam Present: alert, oriented X3 Results - Labs CBC & Chem 7: 07/26/18 03:48 07/26/18 03:48 Laboratory Results - last 24 hr 07/25/18 07/25/18 07/26/18 11:40 11:40 03:48 WBC 6.3 RBC 4.08 L Hgb 12.1 L Hct 35.2 L MCV 86.3 MCH 29.8 MCHC 34.5 RDW 17.0 Plt Count 225 MPV 10.0 Neut % (Auto) 55.8 Lymph % (Auto) 27.1 Winn % (Auto) 12.8 H Eos % (Auto) 3.4 Baso % (Auto) 0.9 Neut # (Auto) 3.5 Lymph # (Auto) 1.7 Winn # (Auto) 0.8 Eos # (Auto) 0.2 Baso # (Auto) 0.1 WBC Differential . Differential Comment Auto diff final Sodium Potassium Chloride Carbon Dioxide Anion Gap BUN Creatinine Estimated GFR Random Glucose Calcium Prot Corrected Calcium Total Bilirubin AST ALT Alkaline Phosphatase Total Protein Albumin Urine Color Shelly Urine Clarity Clear Urine pH 5.0 Ur Specific [place] Greater than 1.060 H Urine Protein Negative Urine Glucose (UA) Negative Urine Ketones Negative Urine Occult Blood Negative Urine Nitrate Negative Urine Bilirubin Moderate H Urine Ictotest Positive H Urine Urobilinogen 4 or greater Ur Leukocyte Esterase Negative Urine RBC 1 Urine WBC 6 H Ur Squamous Epith Cells 1 Urine Mucus Few H Micro UA Comment Culture not ind Ur Microscopic Review Not Reportable Urine Culture Comments Culture not ind Urine Opiates Screen Neg Ur Barbiturates Screen Neg Ur Amphetamines Screen Neg U Benzodiazepines Scrn Neg Urine Cocaine Screen Pos H U Cannabinoids Screen Pos H 07/26/18 03:48 WBC RBC Hgb Hct MCV MCH MCHC RDW Plt Count MPV Neut % (Auto) Lymph % (Auto) Winn % (Auto) Eos % (Auto) Baso % (Auto) Neut # (Auto) Lymph # (Auto) Winn # (Auto) Eos # (Auto) Baso # (Auto) WBC Differential Differential Comment Sodium 141 Potassium 4.0 Chloride 110 H D Carbon Dioxide 22.8 Anion Gap 8 BUN 6 L Creatinine 0.79 Estimated GFR Greater than 89 Random Glucose 91 D Calcium 7.4 L* Prot Corrected Calcium 8.4 L Total Bilirubin 14.6 H AST 868 H ALT 994 H Alkaline Phosphatase 227 H Total Protein 5.3 L Albumin 2.1 L Urine Color Urine Clarity Urine pH Ur Specific [place] Urine Protein Urine Glucose (UA) Urine Ketones Urine Occult Blood Urine Nitrate Urine Bilirubin Urine Ictotest Urine Urobilinogen Ur Leukocyte Esterase Urine RBC Urine WBC Ur Squamous Epith Cells Urine Mucus Micro UA Comment Ur Microscopic Review Urine Culture Comments Urine Opiates Screen Ur Barbiturates Screen Ur Amphetamines Screen U Benzodiazepines Scrn Urine Cocaine Screen U Cannabinoids Screen Assessment and Plan - Assessment (1) Hepatitis Code(s): K75.9 - Inflammatory liver disease, unspecified Status: Acute (2) Hyperbilirubinemia Code(s): E80.6 - Other disorders of bilirubin metabolism Status: Acute (3) Cocaine abuse Code(s): F14.10 - Cocaine abuse, uncomplicated Status: Acute - Plan 1. jaundice: acutely elevated LFTs, increased in comparison to labs from on 07/23/18 AST 817, ALT 1014, ALP 244, Total Bili 14.8. CT Abd/Pelvis w/ hepatosplenomegaly, decompressed gallbladder. Hepatobiliary Scan from on w/ ?chronic cholecystitis vs hepatocellular disease, HIDA negative for obstruction. GI consulted- NO acetaminophen. Repeat labs in am. abdominal sonogram pending- 3. Cocaine Abuse: Per report from , pt found using cocaine in the bathroom of his room prior to leaving AMA, will check U/a and Urine Drug Screen. Denies IVDU. 4. DVT Prophylaxis: SCD/Teds Discharge Planning: GI w/u in process. dc home when stable-
[2018-07-26] MEDS: Senna/Docusate Sodium 8.6/50 MG Tablet PO SCH ×2 (11:59→21:48)
[2018-07-26 12:32] LABS: Mono Screen Neg (Neg)
[2018-07-26 13:01] LABS: Hepatitits B Surface Antigen Reactive (Nonreactive)
[2018-07-26 13:14] LABS: Hepatitis A IgM Antibody Nonreactive (Nonreactive)
--- NOTE | 2018-07-26 13:33 | US ---
EXAM DATE: 07/26/2018 1:22 PM EDT AGE/SEX: 48 years / Male INDICATIONS: Right upper quadrant pain. CLINICAL DATA: This is the patient's initial encounter. Patient reports that signs and symptoms have been present for 4 - 6 days and indicates a pain score of 6/10. MEDICAL/SURGICAL HISTORY: . Hypoglycemia. Kidney stones. . Hernia repair. COMPARISON: [facility] [place] ABDOMEN & PELVIS W CONTRAST, 07/25/2018. . MEASUREMENTS: Liver:__ 18.8 cm. Common Bile Duct:__ 5mm. Right Kidney:__ 10.8 x 5.0 x 6.3 cm. FINDINGS: Liver: Normal echotexture without focal lesion or ductal dilatation. Portal Vein: Hepatopedal flow seen in portal vein. Common Duct: No intraluminal mass or stone visualized. Gallbladder: There is pericholecystic fluid, and the gallbladder is abnormal in appearance with viktoria ed wall thickening. No obvious calculi. Pancreas: Not well visualized. Right Kidney: Normal echotexture and cortical thickness. No mass or hydronephrosis. Other: None. CONCLUSION: 1. Markedly abnormal gallbladder with marked wall thickening and pericholecystic fluid. Negative son ographic Nevarez's sign. Cholecystitis can certainly have this appearance. 2. Hepatosplenomegaly. Electronically signed by: Oscar Rogers MD 07/26/2018 1:32 PM EDT
--- NOTE | 2018-07-26 13:56 | P.PNGI ---
Subjective Interval history: Patient is resting in the bed currently receiving abdominal ultrasound States he was ready to leave A if she did not hurry up and get the test done States nausea vomiting within the past 24 hours and right upper quadrant pain Monitoring labs which includes elevated LFTs, positive hep B And according to the record previous recent cocaine use in another facility <Shoshana Drew - Last Filed: 07/26/18 13:59> Physical Exam Vital signs: Vital Signs 07/25/18 14:25 07/25/18 16:00 07/25/18 20:00 Temperature 97.8 F 98.5 F Pulse Rate 76 77 Respiratory Rate 16 20 18 Blood Pressure 116/56 L 109/58 L Pulse Oximetry 98 99 07/26/18 00:00 07/26/18 04:00 07/26/18 08:00 Temperature 99.2 F 98.7 F 97.8 F Pulse Rate 78 76 65 Respiratory Rate 18 18 16 Blood Pressure 127/61 104/59 L 126/83 Pulse Oximetry 98 99 96 07/26/18 12:00 Temperature 97.6 F Pulse Rate 58 L Respiratory Rate 16 Blood Pressure 106/55 L Pulse Oximetry 98 Intake & Output 07/25/18 07/26/18 07/26/18 18:59 06:59 18:59 Intake Total 1999 923 / 923 Balance 1999 923 / 923 Weight 73.3 kg Intake: IV 1999 923 / 923 NS Inj 1,000 ML @ 100 mls/hr IV 1999 923 / 923 .CONT .Q10H [facility] Rx#:[id number] Other: # Voids 2 Date of Last Bowel Movement 07/22/18 07/22/18 - Constitutional mild distress (Anxious) - Routine HEENT Exam Head: Present: normocephalic ENT: Present: mucous membranes moist - Routine Respiratory Exam Present: accessory muscle use (No obvious shortness of breath at rest) - Routine Cardiovascular Exam Present: S1, S2 - Routine Abdominal Exam Present: soft (Round, right upper quadrant generalized dullness, pressure worse with light palpation) - Routine Skin Exam Present: intact, jaundice (Generalized and sclera) - Routine Neurological Exam Present: alert (Mild to moderate anxiety) - Routine Psychiatric Exam Present: anxious <Shoshana Drew - Last Filed: 07/26/18 13:59> Vital signs: Vital Signs 07/26/18 00:00 07/26/18 04:00 07/26/18 08:00 Temperature 99.2 F 98.7 F 97.8 F Pulse Rate 78 76 65 Respiratory Rate 18 18 16 Blood Pressure 127/61 104/59 L 126/83 Pulse Oximetry 98 99 96 07/26/18 12:00 07/26/18 16:00 Temperature 97.6 F 97.6 F Pulse Rate 58 L 62 Respiratory Rate 16 16 Blood Pressure 106/55 L 103/59 L Pulse Oximetry 98 98 Intake & Output 07/26/18 07/26/18 07/27/18 06:59 18:59 06:59 Intake Total 1922 Balance 1922 Weight 73.3 kg Intake: IV 1922 NS Inj 1,000 ML @ 100 mls/hr IV 1922 .CONT .Q10H [facility] Rx#:[id number] Other: # Voids 2 Date of Last Bowel Movement 07/22/18 <Cornelia Diego A - Last Filed: 07/26/18 23:15> Results - Labs CBC & Chem 7: 07/26/18 03:48 07/26/18 03:48 Laboratory Results - last 24 hr 07/26/18 07/26/18 07/26/18 03:48 03:48 10:05 WBC 6.3 RBC 4.08 L Hgb 12.1 L Hct 35.2 L MCV 86.3 MCH 29.8 MCHC 34.5 RDW 17.0 Plt Count 225 MPV 10.0 Neut % (Auto) 55.8 Lymph % (Auto) 27.1 [place] % (Auto) 12.8 H Eos % (Auto) 3.4 Baso % (Auto) 0.9 Neut # (Auto) 3.5 Lymph # (Auto) 1.7 [place] # (Auto) 0.8 Eos # (Auto) 0.2 Baso # (Auto) 0.1 WBC Differential . Differential Comment Auto diff final Sodium 141 Potassium 4.0 Chloride 110 H D Carbon Dioxide 22.8 Anion Gap 8 BUN 6 L Creatinine 0.79 Estimated GFR Greater than 89 Random Glucose 91 D Calcium 7.4 L* Prot Corrected Calcium 8.4 L Total Bilirubin 14.6 H AST 868 H ALT 994 H Alkaline Phosphatase 227 H Total Protein 5.3 L Albumin 2.1 L Hepatitis A IgM Ab Nonreactive Hep Bs Antigen Reactive H Hep B Core IgM Ab Reactive H Hep C IgG Ab Nonreactive Monoscreen 07/26/18 10:05 WBC RBC Hgb Hct MCV MCH MCHC RDW Plt Count MPV Neut % (Auto) Lymph % (Auto) [place] % (Auto) Eos % (Auto) Baso % (Auto) Neut # (Auto) Lymph # (Auto) [place] # (Auto) Eos # (Auto) Baso # (Auto) WBC Differential Differential Comment Sodium Potassium Chloride Carbon Dioxide Anion Gap BUN Creatinine Estimated GFR Random Glucose Calcium Prot Corrected Calcium Total Bilirubin AST ALT Alkaline Phosphatase Total Protein Albumin Hepatitis A IgM Ab Hep Bs Antigen Hep B Core IgM Ab Hep C IgG Ab Monoscreen Neg - Imaging Impressions Liver Ultrasound 07/26/18 00:00 CONCLUSION: 1. Markedly abnormal gallbladder with marked wall thickening and pericholecystic fluid. Negative sonographic Nevarez's sign. Cholecystitis can certainly have this appearance. 2. Hepatosplenomegaly. <Shoshana Drew - Last Filed: 07/26/18 13:59> - Labs CBC & Chem 7: 07/26/18 03:48 07/26/18 03:48 Laboratory Results - last 24 hr 07/26/18 07/26/18 07/26/18 03:48 03:48 10:05 WBC 6.3 RBC 4.08 L Hgb 12.1 L Hct 35.2 L MCV 86.3 MCH 29.8 MCHC 34.5 RDW 17.0 Plt Count 225 MPV 10.0 Neut % (Auto) 55.8 Lymph % (Auto) 27.1 [place] % (Auto) 12.8 H Eos % (Auto) 3.4 Baso % (Auto) 0.9 Neut # (Auto) 3.5 Lymph # (Auto) 1.7 [place] # (Auto) 0.8 Eos # (Auto) 0.2 Baso # (Auto) 0.1 WBC Differential . Differential Comment Auto diff final Sodium 141 Potassium 4.0 Chloride 110 H D Carbon Dioxide 22.8 Anion Gap 8 BUN 6 L Creatinine 0.79 Estimated GFR Greater than 89 Random Glucose 91 D Calcium 7.4 L* Prot Corrected Calcium 8.4 L Total Bilirubin 14.6 H AST 868 H ALT 994 H Alkaline Phosphatase 227 H Total Protein 5.3 L Albumin 2.1 L Hepatitis A IgM Ab Nonreactive Hep Bs Antigen Reactive H Hep B Core IgM Ab Reactive H Hep C IgG Ab Nonreactive Monoscreen 07/26/18 10:05 WBC RBC Hgb Hct MCV MCH MCHC RDW Plt Count MPV Neut % (Auto) Lymph % (Auto) [place] % (Auto) Eos % (Auto) Baso % (Auto) Neut # (Auto) Lymph # (Auto) [place] # (Auto) Eos # (Auto) Baso # (Auto) WBC Differential Differential Comment Sodium Potassium Chloride Carbon Dioxide Anion Gap BUN Creatinine Estimated GFR Random Glucose Calcium Prot Corrected Calcium Total Bilirubin AST ALT Alkaline Phosphatase Total Protein Albumin Hepatitis A IgM Ab Hep Bs Antigen Hep B Core IgM Ab Hep C IgG Ab Monoscreen Neg - Imaging Impressions Liver Ultrasound 07/26/18 00:00 CONCLUSION: 1. Markedly abnormal gallbladder with marked wall thickening and pericholecystic fluid. Negative sonographic Nevarez's sign. Cholecystitis can certainly have this appearance. 2. Hepatosplenomegaly. <Cornelia Diego - Last Filed: 07/26/18 23:15> Assessment and Plan - Plan 07/26/2018 48-year-old male was admitted to the hospital GI was consulted to assist with his hyperbilirubinemia and hepatitis B. according to the record patient was recently in another facility and left AMA due to an argument with the nurse but was also found in the bathroom doing cocaine. According to the record patient underwent extensive liver labs and workup but no follow-up left AMA. Patient's now receiving abdominal ultrasound and states that he is considering leaving AMA again.. Patient denies any use of alcohol and states that he smokes marijuana but did not admit to any cocaine use. Current labs show bilirubin 14.6 AST 868, ALT 994, alkaline phosphatase 227, hemoglobin 12.1, PT/INR 1.3 Constipation, 1 of patient's complaints states hard formed stools, last stool today and yesterday Hyperbilirubinemia and elevated LFTs could be related to patient's hep B, hepatocellular disease, current and previous drug use Anemia probably related to chronic disease no obvious bleeding noted 07/26/2018 liver ultrasound now concludes marked abnormal gallbladder with thickening and pericholecystic fluid negative Nevarez sign cholecystitis could have this appearance Hepatosplenomegaly Hepatitis B, with jaundice According to the record previous HIDA scan has already been done which showed possible chronic cholecystitis. Current labs include hemoglobin 12.1, PT/INR 1.3, bilirubin 14.6, AST 868, ALT 994, alkaline phosphatase 227. Concerned at this point the patient will leave A since he is already discussing and appears quite anxious. Plan Diet as tolerated per attending Obtain liver workup labs and offer to follow patient after hospital stay on an outpatient basis Encourage hydration Monitor labs including hemoglobin, LFTs Bowel regimen will add MiraLAX daily Zofran as needed Supportive care Further recommendations to follow <Shoshana Drew - Last Filed: 07/26/18 13:59> - Attending Attestation Findings compatible with acute hepatitis B. Supportive care and daily LFT's. To be discharge once LFT's start to trend down. <Cornelia Diego - Last Filed: 07/26/18 23:15>
[2018-07-26] MEDS: Polyethylene Glycol 3350 17 GM Packet PO SCH (16:35)
[2018-07-27] MEDS: Morphine Sulfate Inj 2 MG/ML Vial IV.PUSH PRN ×2 (02:31→07:00)
[2018-07-27] MEDS: Sod Chloride 0.9% Inj 1,000 ML IV.CONT SCH ×4 (07:00→23:43)
[2018-07-27 07:55] LABS: Albumin 2.1 g/dL (3.4-5.0)
[2018-07-27 08:02] LABS: Total Protein 5.5 g/dL (6.4-8.2)
[2018-07-27] MEDS: Polyethylene Glycol 3350 17 GM Packet PO SCH (08:06)
[2018-07-27] MEDS: Senna/Docusate Sodium 8.6/50 MG Tablet PO SCH ×2 (08:06→21:33)
--- NOTE | 2018-07-27 10:00 | P.PNIM ---
Subjective Interval history: f/u ; hepatitis in no acute distress. has some pain to the RUQ. no fever. LFT trend noted. Physical Exam Vital signs: Vital Signs 07/26/18 12:00 07/26/18 16:00 07/26/18 21:20 Temperature 97.6 F 97.6 F 98.4 F Pulse Rate 58 L 62 74 Respiratory Rate 16 16 17 Blood Pressure 106/55 L 103/59 L 122/70 Pulse Oximetry 98 98 99 07/27/18 00:00 07/27/18 04:00 07/27/18 08:00 Temperature 98 F 97.4 F L 98.4 F Pulse Rate 66 64 70 Respiratory Rate 18 19 18 Blood Pressure 120/67 140/83 128/65 Pulse Oximetry 99 99 98 Intake & Output 07/26/18 07/27/18 07/27/18 18:59 06:59 18:59 Intake Total 1922 / 1999 Output Total 1850 / 1850 320 / 320 Balance 1922 150 / 150 -320 / -320 Weight 73.5 kg Intake: IV 1922 1000 / 1000 NS Inj 1,000 ML @ 100 mls/hr IV 1922 1000 / 1000 .CONT .Q10H [facility] Rx#:[id number] Oral 1000 / 1000 Output: Urine 1750 / 1750 320 / 320 Emesis 100 / 100 Other: Date of Last Bowel Movement 07/22/18 07/22/18 # Bowel Movements 0 - Constitutional no acute distress - Routine Respiratory Exam Present: CTA bilaterally - Routine Cardiovascular Exam Present: RRR - Routine Abdominal Exam Present: soft, tenderness (mild RUQ tenederness.) - Routine Extremities Exam Comments: no pedal edema. - Routine Neurological Exam Present: alert, oriented X3 Results - Labs CBC & Chem 7: 07/26/18 03:48 07/26/18 03:48 Laboratory Results - last 24 hr 07/26/18 07/26/18 07/27/18 10:05 10:05 06:24 Total Bilirubin 16.3 H Direct Bilirubin 12.9 H Indirect Bilirubin 3.4 H AST 990 H ALT 1033 H Alkaline Phosphatase 240 H Total Protein 5.5 L Albumin 2.1 L Hepatitis A IgM Ab Nonreactive Hep Bs Antigen Reactive H Hep B Core IgM Ab Reactive H Hep C IgG Ab Nonreactive Monoscreen Neg - Imaging Impressions Liver Ultrasound 07/26/18 00:00 CONCLUSION: 1. Markedly abnormal gallbladder with marked wall thickening and pericholecystic fluid. Negative sonographic Nevarez's sign. Cholecystitis can certainly have this appearance. 2. Hepatosplenomegaly. Assessment and Plan - Assessment (1) Hepatitis Code(s): K75.9 - Inflammatory liver disease, unspecified Status: Acute (2) Hyperbilirubinemia Code(s): E80.6 - Other disorders of bilirubin metabolism Status: Acute (3) Cocaine abuse Code(s): F14.10 - Cocaine abuse, uncomplicated Status: Acute - Plan 1. jaundice/ acute hepatitis B: a Hepatobiliary Scan from on 07/23/18 w/ ? chronic cholecystitis vs hepatocellular disease, HIDA negative for obstruction. GI consulted- NO acetaminophen. GI f/u appreciated; waiting for LFT's to improve- 3. Cocaine Abuse: Per report from , pt found using cocaine in the bathroom of his room prior to leaving A, will check U/a and Urine Drug Screen. Denies IVDU. 4. DVT Prophylaxis: SCD/Teds Discharge Planning: dc home when LFT's start to trend down.
--- NOTE | 2018-07-27 13:37 | P.PNGI ---
Subjective Interval history: Patient is resting in the bed Monitoring labs in LFTs which shows some elevation in his bilirubin 16.3, AST 990, ALT 1033 Patient does note some nausea with current morphine pain meds but no obvious vomiting No bowel movement still struggling with some constipation <Shoshana Drew - Last Filed: 07/27/18 13:37> Physical Exam Vital signs: Vital Signs 07/26/18 16:00 07/26/18 21:20 07/27/18 00:00 Temperature 97.6 F 98.4 F 98 F Pulse Rate 62 74 66 Respiratory Rate 16 17 18 Blood Pressure 103/59 L 122/70 120/67 Pulse Oximetry 98 99 99 07/27/18 04:00 07/27/18 08:00 07/27/18 12:00 Temperature 97.4 F L 98.4 F 98.4 F Pulse Rate 64 70 70 Respiratory Rate 19 18 18 Blood Pressure 140/83 128/65 113/63 Pulse Oximetry 99 98 97 Intake & Output 07/26/18 07/27/18 07/27/18 18:59 06:59 18:59 Intake Total 1922 / 1999 Output Total 1850 / 1850 320 / 320 Balance 1922 150 / 150 -320 / -320 Weight 73.5 kg Intake: IV 1922 1000 / 1000 NS Inj 1,000 ML @ 100 mls/hr IV 1922 1000 / 1000 .CONT .Q10H [facility] Rx#:[id number] Oral 1000 / 1000 Output: Urine 1750 / 1750 320 / 320 Emesis 100 / 100 Other: Date of Last Bowel Movement 07/22/18 07/22/18 # Bowel Movements 0 - Constitutional mild distress, disheveled - Routine HEENT Exam Head: Present: normocephalic ENT: Present: mucous membranes dry - Routine Respiratory Exam Present: accessory muscle use (Even, unlabored at rest) - Routine Abdominal Exam Present: tenderness (Right upper quadrant mild tenderness to light palpation, round, no obvious guarding, taut) <Shoshana Drew - Last Filed: 07/27/18 13:37> Vital signs: Vital Signs 07/26/18 21:20 07/27/18 00:00 07/27/18 04:00 Temperature 98.4 F 98 F 97.4 F L Pulse Rate 74 66 64 Respiratory Rate 17 18 19 Blood Pressure 122/70 120/67 140/83 Pulse Oximetry 99 99 99 07/27/18 08:00 07/27/18 12:00 Temperature 98.4 F 98.4 F Pulse Rate 70 70 Respiratory Rate 18 18 Blood Pressure 128/65 113/63 Pulse Oximetry 98 97 Intake & Output 07/26/18 07/27/18 07/27/18 18:59 06:59 18:59 Intake Total 1922 / 1999 Output Total 1850 / 1850 320 / 320 Balance 1922 150 / 150 -320 / -320 Weight 73.5 kg Intake: IV 1922 1000 / 1000 NS Inj 1,000 ML @ 100 mls/hr IV 1922 1000 / 1000 .CONT .Q10H [facility] Rx#:[id number] Oral 1000 / 1000 Output: Urine 1750 / 1750 320 / 320 Emesis 100 / 100 Other: Date of Last Bowel Movement 07/22/18 07/22/18 # Bowel Movements 0 <Cornelia Diego - Last Filed: 07/27/18 16:30> Results - Labs CBC & Chem 7: 07/26/18 03:48 07/26/18 03:48 Laboratory Results - last 24 hr 07/27/18 06:24 Total Bilirubin 16.3 H Direct Bilirubin 12.9 H Indirect Bilirubin 3.4 H AST 990 H ALT 1033 H Alkaline Phosphatase 240 H Total Protein 5.5 L Albumin 2.1 L - Imaging Impressions Liver Ultrasound 07/26/18 00:00 CONCLUSION: 1. Markedly abnormal gallbladder with marked wall thickening and pericholecystic fluid. Negative sonographic Nevarez's sign. Cholecystitis can certainly have this appearance. 2. Hepatosplenomegaly. <Shoshana Drew - Last Filed: 07/27/18 13:37> - Labs CBC & Chem 7: 07/26/18 03:48 07/26/18 03:48 Laboratory Results - last 24 hr 07/27/18 06:24 Total Bilirubin 16.3 H Direct Bilirubin 12.9 H Indirect Bilirubin 3.4 H AST 990 H ALT 1033 H Alkaline Phosphatase 240 H Total Protein 5.5 L Albumin 2.1 L <Cornelia Diego - Last Filed: 07/27/18 16:30> Assessment and Plan - Plan 07/26/2018 48-year-old male was admitted to the hospital GI was consulted to assist with his hyperbilirubinemia and hepatitis B. according to the record patient was recently in another facility and left AMA due to an argument with the nurse but was also found in the bathroom doing cocaine. According to the record patient underwent extensive liver labs and workup but no follow-up left AMA. Patient's now receiving abdominal ultrasound and states that he is considering leaving AMA again.. Patient denies any use of alcohol and states that he smokes marijuana but did not admit to any cocaine use. Current labs show bilirubin 14.6 AST 868, ALT 994, alkaline phosphatase 227, hemoglobin 12.1, PT/INR 1.3 Constipation, 1 of patient's complaints states hard formed stools, last stool today and yesterday Hyperbilirubinemia and elevated LFTs could be related to patient's hep B, hepatocellular disease, current and previous drug use Anemia probably related to chronic disease no obvious bleeding noted 07/26/2018 liver ultrasound now concludes marked abnormal gallbladder with thickening and pericholecystic fluid negative Nevarez sign cholecystitis could have this appearance Hepatosplenomegaly Hepatitis B, with jaundice According to the record previous HIDA scan has already been done which showed possible chronic cholecystitis. Current labs include hemoglobin 12.1, PT/INR 1.3, bilirubin 14.6, AST 868, ALT 994, alkaline phosphatase 227. Concerned at this point the patient will leave AMA since he is already discussing and appears quite anxious. 07/27/2018, patient's bilirubin continues to climb 16.3, AST 990 ALT 1033. Secondary to patient's hepatitis B. liver ultrasound showed marked gallbladder wall thickening negative Nevarez sign. This could be related to his liver engorgement. Hepatosplenomegaly. Instructed patient that he needs to remain in the hospital until LFTs are trending down and patient has less pain at rest. Encourage patient again to consider outpatient follow-up when he is stable for discharge. Verbalizes understanding. Plan Diet regular Monitor labs Pain meds per attending Supportive care, drug abstinence Encourage hydration Monitor labs including hemoglobin, LFTs MiraLAX daily Mauricio Patient was seen per myself and Dr. Diego, note was written on his behalf <Shoshana Drew - Last Filed: 07/27/18 13:37> - Attending Attestation Supportive care only for acute hepatitis B, will follow LFT's until enzymes showing significant improvement and no signs of hepatic encephalopathy. Will follow up with you. <Cornelia Diego A - Last Filed: 07/27/18 16:30>
[2018-07-28] MEDS: Sod Chloride 0.9% Inj 1,000 ML IV.CONT SCH (05:27)
[2018-07-28 07:44] VITALS: RESP 16
[2018-07-28 08:46] LABS: Albumin 2.2 g/dL (3.4-5.0)
[2018-07-28 08:54] LABS: Total Protein 5.4 g/dL (6.4-8.2)
[2018-07-28] MEDS: Senna/Docusate Sodium 8.6/50 MG Tablet PO SCH (08:56)
[2018-07-28] MEDS: Polyethylene Glycol 3350 17 GM Packet PO SCH (08:56)
[2018-07-28 09:10] VITALS: BP 115/56; PULSE 62; TEMP 98; O2SAT 99
--- NOTE | 2018-07-28 10:40 | P.PNIM ---
Subjective Interval history: f/u; jaundice in no acute distress. abdominal pain seems to be improving. now resting comfortably. no new complaints. Physical Exam Vital signs: Vital Signs 07/27/18 12:00 07/27/18 16:00 07/27/18 21:50 Temperature 98.4 F 97.7 F 98.4 F Pulse Rate 70 69 80 Respiratory Rate 18 18 16 Blood Pressure 113/63 115/71 130/79 Pulse Oximetry 97 100 100 07/28/18 00:00 07/28/18 05:00 07/28/18 08:00 Temperature 98.3 F 98 F 98.0 F Pulse Rate 82 63 62 Respiratory Rate 18 16 16 Blood Pressure 123/73 126/69 115/56 L Pulse Oximetry 99 100 99 Intake & Output 07/27/18 07/28/18 07/28/18 18:59 06:59 18:59 Intake Total 2200 / 2200 2970 / 2970 Output Total 320 / 320 Balance 1880 / 1880 2970 / 2970 Weight 74 kg Intake: IV 1000 / 1000 1000 / 1000 NS Inj 1,000 ML @ 100 mls/hr IV 1000 / 1000 1000 / 1000 .CONT .Q10H [facility] Rx#:[id number] Oral 1200 / 1200 1969 / 1970 Output: Urine 320 / 320 Other: # Voids 4 2 Date of Last Bowel Movement 07/22/18 07/28/18 # Bowel Movements 1 - Constitutional no acute distress - Routine Respiratory Exam Present: CTA bilaterally - Routine Cardiovascular Exam Present: RRR - Routine Abdominal Exam Present: soft - Routine Extremities Exam Comments: no pedal edema. - Routine Neurological Exam Present: alert, oriented X3 Results - Labs CBC & Chem 7: 07/26/18 03:48 07/26/18 03:48 Laboratory Results - last 24 hr 07/28/18 07:35 Total Bilirubin 16.9 H Direct Bilirubin 13.5 H Indirect Bilirubin 3.4 H AST 883 H ALT 1012 H Alkaline Phosphatase 227 H Total Protein 5.4 L Albumin 2.2 L Assessment and Plan - Assessment (1) Hepatitis Code(s): K75.9 - Inflammatory liver disease, unspecified Status: Acute (2) Hyperbilirubinemia Code(s): E80.6 - Other disorders of bilirubin metabolism Status: Acute (3) Cocaine abuse Code(s): F14.10 - Cocaine abuse, uncomplicated Status: Acute - Plan 1. jaundice/ acute hepatitis B: a Hepatobiliary Scan from on 07/23/18 w/ ? chronic cholecystitis vs hepatocellular disease, HIDA negative for obstruction. GI consulted- NO acetaminophen. GI f/u appreciated; d/w and patient was cleared for discharge- will monitor the LFT's closely- as outpatient. 3. Cocaine Abuse: counselled. 4. DVT Prophylaxis: SCD/Teds Discharge Planning: dc home today. see med list. f/u with pcp and GI. d/w the patient and
--- NOTE | 2018-07-28 10:42 | P.DS ---
Date of admission: 07/25/18 05:04 Primary care physician: No Primary Care Physician Brief History from admission: This is a 48-year-old male with no reported PMH who presented to ER with complaints of RUQ pain and jaundice. Pt was apparently admitted to [facility] on 07/23/18 for similar complaints, had been undergoing extensive work up for elevated LFTs and hyperbilirubinemia, however pt LEFT AMA after getting into an argument with a nurse. Per report, pt had been found using Cocaine in the bathroom and signed out AMA. He denies IVDU. Records from obtained and reviewed, pt underwent Hepatobiliary Scan 07/23/18 w/ findings suggestive of either chronic cholecystitis or hepatocellular disease, HIDA w/ no evidence of obstruction, found to be Hepatitis B positive and clinical picture suggestive of acute Hepatitis B infection per notes. Pt denies previous h/o Hepatitis. Reports severe RUQ pain, 10/10, associated w/ nausea/vomiting. No fever or chills, but notes decreased urinary output w/ dark-colored urine. DS: Diagnosis - Discharge Diagnosis (1) Hepatitis Status: Acute (2) Hyperbilirubinemia Status: Acute (3) Cocaine abuse Status: Acute DS: Summary Hospital Course: patient was admitted with jaundice and was found to have acute Hepatitis B- GI consulted and recommended supportive care with close outpatient f/u with LFT monitoring. - Time Spent with Patient Total time spent providing and/or coordinating discharge services: Less than 30 minutes Exam Vital signs: Vital Signs 07/27/18 12:00 07/27/18 16:00 07/27/18 21:50 Temperature 98.4 F 97.7 F 98.4 F Pulse Rate 70 69 80 Respiratory Rate 18 18 16 Blood Pressure 113/63 115/71 130/79 Pulse Oximetry 97 100 100 07/28/18 00:00 07/28/18 05:00 07/28/18 08:00 Temperature 98.3 F 98 F 98.0 F Pulse Rate 82 63 62 Respiratory Rate 18 16 16 Blood Pressure 123/73 126/69 115/56 L Pulse Oximetry 99 100 99 Intake & Output 07/27/18 07/28/18 07/28/18 18:59 06:59 18:59 Intake Total 2200 / 2200 2970 / 2970 Output Total 320 / 320 Balance 1880 / 1880 2970 / 2970 Weight 74 kg Intake: IV 1000 / 1000 1000 / 1000 NS Inj 1,000 ML @ 100 mls/hr IV 1000 / 1000 1000 / 1000 .CONT .Q10H [facility] Rx#:[id number] Oral 1200 / 1200 1969 Output: Urine 320 / 320 Other: # Voids 4 2 Date of Last Bowel Movement 07/22/18 07/28/18 # Bowel Movements 1 Results Procedures completed during hospitalization: none. Labs on day of discharge: Labs from last 24 hours 07/28/18 07:35 Total Bilirubin 16.9 H Direct Bilirubin 13.5 H Indirect Bilirubin 3.4 H AST 883 H ALT 1012 H Alkaline Phosphatase 227 H Total Protein 5.4 L Albumin 2.2 L - Impressions ITS Impressions Abdomen/Pelvis CT 07/25/18 02:43 CONCLUSION: 1. Hepatosplenomegaly. 2. Small mildly enlarged lymph nodes within the jack hepatis without bulky adenopathy elsewhere. The exact etiology is uncertain. I cannot completely exclude a myeloproliferative disorder. 3. Poor evaluation of the gallbladder which is largely decompressed. There is suspected linear high attenuation material within the lumen which could relate to infolding of the gallbladder wall or could relate to sludge. At some point an outpatient follow-up ultrasound of the gallbladder is suggested to further assess. 4. Small volume ascites. Liver Ultrasound 07/26/18 00:00 CONCLUSION: 1. Markedly abnormal gallbladder with marked wall thickening and pericholecystic fluid. Negative sonographic Nevarez's sign. Cholecystitis can certainly have this appearance. 2. Hepatosplenomegaly. Discharge Plan - Discharge Condition Condition: Stable - Physicians Team Primary Care Provider: Primary Care Physici,No Attending Provider: Ailin Gonzales Other Providers: Cornelia Diego MD
== END 2018-07-28 11:11 | disposition home or self-care (01) ==
LOC: NEPE 01:55 → NEDA 05:04 → N05 07:41
PROVIDERS: ADMIT Internal Medicine; ATTEND Internal Medicine